=== PATIENT | male | born 1965 | race Caucasian/White ===

== ENCOUNTER 2017-09-05 22:14 | Emergency (ER) | payer BC, OTHER ==
[~2017-09-05] VITALS: Ht 180.3 cm; Wt 108.9 kg
[~2017-09-05 22:14] MED LIST: ACEBUTOLOL HCL200 MG PO; AZITHROMYCIN500 MG PO; BACTROBAN15 GM TOP; CLOBETASOL EMOL15 GM TOP; EDARBYCLOR 40-1 EACH PO; HYDROCHLOROTH12.5 MG PO; METFORMIN HCL500 MG PO; NEXIUM40 MG PO; NIFEDIPINE10 MG PO; TRIAMCINOLONE A15 G3 TOP; Z COREG PO; Z.0.CATAPRES0.3 MG PO; Z.0.COZAAR100 MG PO; Z.0.DEXILANT60 MG PO; Z.0.FOLIC ACID1 MG PO; Z.0.GLUCOPHAGE500 MG PO; Z.0.HUMALOG100 UNIT/ SQ; Z.0.LANTUS100 UNIT/1 SQ; Z.0.LIPITOR40 MG PO; Z.0.MOBIC7.5 MG PO; Z.0.REGLAN5 MG PO; [UNRECOGNIZED DRUG - OTHER] PO
--- OUTSIDE RECORDS SUMMARY | 2017-09-05 22:16 | XMS REPORT | Summary of Care ---
Author Author [facility] Unknown Address [facility] Phone Unavailable Care Team Providers Care Dust Collector Operator Name Role Phone MINDI CRENSHAW M.D. Unavailable Unavailable Unavailable Unavailable Functional Status Name Dates Details Functional status health issues are not documented Status: Name Dates Details Cognitive status health issues are not documented Status: Problems Name Dates Details Diabetes mellitus (250.00, E11.9) Status: Active Hypertension (401.9, I10) Status: Active Hyperlipidemia (272.4, E78.5) Status: Active Vitamin D insufficiency (268.9, E55.9) Status: Active Medications Name Dates Details MetFORMIN HCl - 500 MG Oral Tablet Take 2 tablets by mouth in the morning and take 2 tablets in the evening Quantity: 360 MINDI CRENSHAW M.D. * Start : 29-Apr-2017 Active NIFEdipine ER 60 MG Oral Tablet Extended Release 24 Hour Take one tablet twice dailyPer PCP * Quantity: 60 Refills: 2 MINDI CRENSHAW M.D. * Start : 04-Oct-2014 Active Metoclopramide HCl - 5 MG Oral Tablet TAKE 1 TABLET 2x DAILY. * Quantity: 60 Refills: 2 MINDI CRENSHAW M.D. * Start : 04-Oct-2014 Active Edarbyclor 40-12.5 MG Oral Tablet Take one tablet dailyPer PCP * Refills: 0 MINDI CRENSHAW M.D. * Start : 04-Oct-2014 Active NexIUM 40 MG Oral Capsule Delayed Release take one tablet daily * Quantity: 60 Refills: 2 MINDI CRENSHAW M.D. * Start : 04-Oct-2014 Active HydroCHLOROthiazide 12.5 MG Oral Capsule TAKE 1 CAPSULE DAILYPer PCP * Quantity: 30 Refills: 2 MINDI CRENSHAW M.D. * Start : 04-Oct-2014 Active Atorvastatin Calcium 40 MG Oral Tablet TAKE 1 TABLET DAILY * Quantity: 30 Refills: 2 MINDI CRENSHAW M.D. * Start : 04-Oct-2014 Active Acebutolol HCl - 200 MG Oral Capsule Take one tablet daily * Quantity: 30 Refills: 2 * Start : 04-Oct-2014 Active Lantus SoloStar 100 UNIT/ML Subcutaneous Solution Pen-injector 50-52 units nightly; may add extra 10 units the night of steroid shot * Quantity: 4 Refills: 0 MINDI CRENSHAW M.D. * Start : 11-Dec-2014 Active 5 x 3 ML Pen HumaLOG KwikPen 100 UNIT/ML Subcutaneous Solution Pen-injector Inject 8-15 units subcutaneously with meals - icr 1 unit: 3 to 5 grams; CF 40- up to 50 units a day * Quantity: 3 Refills: 0 MINDI CRENSHAW M.D. * Start : 27-Jul-2017 Active 5 x 3 ML Pen BD Pen Needle Mini U/F 31G X 5 MM 5 to 6 a day * Quantity: 500 Refills: 4 MINDI CRENSHAW M.D. * Start : 11-Dec-2014 Active GlucaGen HypoKit 1 MG Injection Solution Reconstituted USE DIRECTED in case of severe hypoglycemia * Quantity: 1 Refills: 10 MINDI CRENSHAW M.D. * Start : 11-Dec-2014 Active FreeStyle Lite Test In Vitro Strip CHECK BLOOD SUGAR 4 TO 5 TIMES A DAY * Quantity: 400 Refills: 4 MINDI CRENSHAW M.D. * Start : 11-Dec-2014 Active FreeStyle Lancets Check BG 5x a day * Quantity: 5 Refills: 4 MINDI CRENSHAW M.D. * Start : 11-Dec-2014 Active 100 Miscellaneous Box FreeStyle Lite Device USE DIRECTED. * Quantity: 1 Refills: 0 MINDI CRENSHAW M.D. * Start : 11-Dec-2014 Active B-12 TR 1000 MCG Oral Tablet Extended Release TAKE 1 TABLET DAILY DIRECTED. * Quantity: 100 Refills: 6 MINDI CRENSHAW M.D. * Start : 04-Jul-2015 Active Vitamin D3 2000 UNIT Oral Capsule 1 a day; Starting 03-11-16 * Quantity: 100 Refills: 4 MINDI CRENSHAW M.D. * Start : 04-Jul-2015 Active HumuLIN N KwikPen 100 UNIT/ML Subcutaneous Suspension Pen-injector Take 1 unit for every 2 mg of Prednisone ; to be taken at the same timeUsed as directed while on Steroids MDD:50 * Quantity: 1 Refills: 1 MINDI CRENSHAW M.D. * Start : 26-May-2017 Active 3 ML Pen Allergies and Adverse Reactions Name Dates Details No Known Drug Allergies (Allergy) Status: Active Past Medical History Name Dates Details History of alcoholism (V11.3, F10.21) Status: Resolved History of pancreatitis (V12.79, Z87.19) Status: Resolved History of squamous cell carcinoma (V10.89, Z85.89) Status: Resolved Procedures Procedure Dates Details History of Knee Surgery Completed History of Elbow Surgery Completed History of Cholecystectomy Completed History of Tonsillectomy Completed History of Nasal Septal Deviation Repair Completed History of hip replacement Completed Immunization Name Dates Details Pneumococcal polysaccharide vaccine, 23 valent Comments: Approx [id number] Influenza Comments: Approx [id number] Influenza Comments: Approx [id number] Fluzone Quadrivalent 0.5 ML Intramuscular Suspension on: 06-Jan-2017 Family History Name Dates Details Family history of diabetes mellitus (V18.0, Z83.3) Status: Active Family history of coronary arteriosclerosis (V17.3, Z82.49) Status: Active Social History Name Dates Details - Status: Name Dates Details Current every day smoker Former smoker Vital Signs Date Test Result Details [id number] BP Systolic 140 mm[Hg] Status: BP Diastolic 76 mm[Hg] Status: [id number] BP Systolic 158 mm[Hg] Status: Comments: Location: LUE; Position: Sitting BP Diastolic 77 mm[Hg] Status: Comments: Location: E; Position: Sitting Height 71 in Status: Weight 251.1875 lb Status: Body Mass Index Calculated 35.03 kg/m2 Status: Body Surface Area Calculated 2.32 m2 Status: Heart Rate 67 /min Status: Results Date Description Value Details [id number] [O] Hemoglobin A1c (in office) HEMOGLOBIN A1c 7.3 99-Qaq-[id number]:18 Glucose (Point of Care In Office) Glucose POC [facility] Plan of Care Name Dates Details Planned Observations Planned Goals not documented Planned Encounters Appointment; MINDI CRENSHAW M.D. On: 04-Nov-2017 15:15 Interventions Provided Labs/Procedures/Imaging* [O] Hemoglobin A1c (in office); Done: 28 Jul 2017 * Glucose (Point of Care In Office); Done: 28 Jul 2017 Discussion/Summary* A1c better. Continue regimen. May use ICR 1:3 as needed, e.g. on GC. Discussed the importance of DM control and its metabolic and vascular complications. Stressed the importance of consistent MNT and med compliance in DM control! * Continue to do SMBG 3-5x a day. * Timely and accurate insulin bolusing reiterated * Exercise encouraged * Take medicine. Discussed the importance of BP control. * Take medicine. MNT reiterated. Discussed the importance of Lipid control. * Take Vit D * Spent 18/25 mins counseling Instructions Name Dates Details Instructions not documented Encounters Appointment; MINDI CRENSHAW M.D. Encounter Diagnosis: Problem not documented On: 06-Nov-2015 9:00 Appointment; MINDI CRENSHAW M.D. Encounter Diagnosis: Problem not documented On: 10-Mar-2016 8:00 Appointment; MINDI CRENSHAW M.D. Encounter Diagnosis: Problem not documented On: 23-Jun-2016 8:00 Appointment; MINDI CRENSHAW M.D. Encounter Diagnosis: Problem not documented On: 07-Oct-2016 8:30 Appointment; MINDI CRENSHAW M.D. Encounter Diagnosis: Problem not documented On: 16-Feb-2017 8:30 Appointment; MINDI CRENSHAW M.D. Encounter Diagnosis: Problem not documented On: 26-May-2017 15:45 Appointment; KAILYN STEIN RD Encounter Diagnosis: Problem not documented On: 27-Jun-2017 8:00 Appointment; MINDI CRENSHAW M.D. Encounter Diagnosis: Problem not documented On: 28-Jul-2017 13:00
== END 2017-09-05 22:45 | disposition home or self-care (01) ==
LOC: FSED 22:14
DX: L03.011 Cellulitis of right finger (principal); E11.9 Type 2 diabetes mellitus without complications; Z79.4 Long term (current) use of insulin

== ENCOUNTER → 2019-02-09 | Day surgery (SDC) | payer BC, OTHER ==
[2019-02-08 17:18] LABS: BASOPHILS # (AUTO) 0.1 (0.0-0.1); BASOPHILS % 0.5 % (0.0-1.0); EOSINOPHILS # (AUTO) 0.3 (0.0-0.4); EOSINOPHILS % 2.9 % (0.0-6.0); HEMATOCRIT 41.4 % (38.2-49.6); HEMOGLOBIN 13.9 g/dL (14.0-18.0); LYMPHOCYTES # (AUTO) 3.2 (1.0-3.2); LYMPHOCYTES % 31.1 % (18.0-39.1); MEAN CORPUSCULAR HEMOGLOBIN 28.5 pg (28-32); MEAN CORPUSCULAR HGB CONC 33.6 g/dL (31-35); MONOCYTES % 9.6 % (4.4-11.3); NEUTROPHILS # (AUTO) 5.7 (2.1-6.9); NEUTROPHILS % 55.6 % (38.7-80.0); PLATELET COUNT 302 x10e3/uL (140-360); RED BLOOD COUNT 4.87 x10e6/uL (4.3-5.7); RED CELL DISTRIBUTION WIDTH 12.9 % (11.7-14.4)
[2019-02-08 17:36] LABS: ANION GAP 12.1 mmol/L (8-16); BLOOD UREA NITROGEN 13 mg/dL (7-26); BUN/CREATININE RATIO 12 (6-25); CALCIUM 9.6 mg/dL (8.4-10.2); CARBON DIOXIDE 27 mmol/L (22-29); CHLORIDE 101 mmol/L (98-107); CREATININE, SERUM 1.07 mg/dL (0.72-1.25); EST GLOMERULAR FILTRATION RATE > 60 ML/MIN (60-); GLUCOSE 67 mg/dL (74-118); POTASSIUM 3.1 mmol/L (3.5-5.1); SODIUM 137 mmol/L (136-145)
[~2019-02-09] MED LIST changes: +BUPIVACAINE 0.25%/EPI 30ML SDV INJ ONE; +CEFAZOLIN SOD 1 GM VIAL ONE; +CLINDAMYCIN HC150 MG PO; +DEXAMETHASONE SOD PHOS INJ 4 MG/ML VIAL ONE; +FENTANYL CITRATE/PF 100MCG/2 ML INJ ONE; +LIDOCAINE HCL 1% 30ML-PF VIAL ONE; +LIDOCAINE HCL 1% LOCAL INJ 20 ML VIAL ONE; +LIDOCAINE HCL 2% LOCAL INJ 5 ML SDV VIAL INJ ONE; +MIDAZOLAM HCL 2 MG/2 ML VIAL ONE; +ONDANSETRON HCL INJ 2MG/ML 2ML 2 MG/ML VIAL ONE; +PROPOFOL IV EMULSION 10 MG/ML 20 ML VIAL ONE; +SEVOFLURANE INHAL SOLN 250 ML PEN BTL ONE; +SINGULAIR10 MG PO; +SULFAMETHOXAZO1 EAC1 PO
--- OUTSIDE RECORDS SUMMARY | 2019-02-09 09:36 | XMS REPORT | Summary of Care ---
Author Author [facility] Address [facility] Phone Unavailable Care Team Providers Care Lagging Machine Operator Name Role Phone MINDI CRENSHAW M.D. Unavailable Unavailable MINDI CRENSHAW MD Unavailable Unavailable Unavailable Unavailable Functional Status Name Dates Details Functional status health issues are not documented Status: Name Dates Details Cognitive status health issues are not documented Status: Problems Name Dates Details Diabetes mellitus (250.00, E11.9) Status: Active Hyperlipidemia (272.4, E78.5) Status: Active Hypertension (401.9, I10) Status: Active Vitamin D insufficiency (268.9, E55.9) Status: Active Medications Name Dates Details metFORMIN HCl - 500 MG Oral Tablet TAKE 2 TABLETS BY MOUTH EVERY MORNING AND 2 TABLETS EVERY EVENING Quantity: 360 MINDI CRENSHAW M.D. * Start : 01-Aug-2018 Active NIFEdipine ER 60 MG Oral Tablet [...] tablet daily * Quantity: 60 Refills: 2 FLOWER Conteh.MINDI Alegre * Start : 04-Oct-2014 Active hydroCHLOROthiazide 12.5 MG Oral Capsule TAKE 1 CAPSULE DAILYPer PCP * Quantity: 30 Refills: 2 FLOWER Conteh.MINDI Alegre * Start : 04-Oct-2014 Active Atorvastatin Calcium 40 MG Oral Tablet TAKE 1 TABLET DAILY * Quantity: 30 Refills: 2 MINDI CRENSHAW M.D. * Start : 04-Oct-2014 Active Acebutolol HCl - 200 MG Oral Capsule Take one tablet daily * Quantity: 30 Refills: 2 * Start : 04-Oct-2014 Active Lantus SoloStar 100 UNIT/ML Subcutaneous Solution Pen-injector Inject 50 units subcutaneously nightly may add extra 10 units the night of stero id shot MDD:80 * Quantity: 5 Refills: 0 MINDI CRENSHAW M.D. * Start : 11-Dec-2014 Active 5 x 3 ML Pen HumaLOG KwikPen 100 UNIT/ML Subcutaneous Solution Pen-injector Inject 18-22 units subcutaneously with meals - ICR 1:4 (B&S); 1:5 (L); CF 40- up to 80 units a day * Quantity: 5 Refills: 1 MINDI CRENSHAW M.D. * Start : 11-Dec-2014 Active 5 x 3 ML Pen BD Pen Needle Mini U/F 31G X 5 MM 5 to 6 a day * Quantity: 500 Refills: 4 MINDI CRENSHAW M.D. * Start : 11-Dec-2014 Active GlucaGen HypoKit 1 MG Injection Solution Reconstituted USE DIRECTED in case of severe hypoglycemia * Quantity: 1 Refills: 11 MINDI CRENSHAW M.D. * Start : 26-Dec-2017 Active FreeStyle Lite Test In Vitro Strip CHECK BLOOD SUGAR 4 TO 5 TIMES A DAY * Quantity: 5 Refills: 0 MINDI CRENSHAW M.D. * Start : 24-Apr-2018 Active 100 Strip Box FreeStyle Lancets Use to check blood sugar 5 time(s) daily * Quantity: 5 Refills: 0 MINDI CRENSHAW M.D. * Start : 23-Dec-2017 Active 100 Unit Box FreeStyle Lite Device USE DIRECTED. * Quantity: 1 Refills: 0 MINDI CRENSHAW M.D. * Start : 11-Dec-2014 Active B-12 TR 1000 MCG Oral Tablet Extended Release TAKE 1 TABLET DAILY DIRECTED. * Quantity: 100 Refills: 6 FLOWER MINDI Puente * Start : 04-Jul-2015 Active Vitamin D3 2000 UNIT Oral Capsule 1 a day; Starting 03-11-16 * Quantity: 100 Refills: 4 FLOWER Wero.MINDI Alegre * Start : 04-Jul-2015 Active HumuLIN N KwikPen 100 UNIT/ML Subcutaneous Suspension Pen-injector Take 1 unit for every 2 mg of Prednisone ; to be taken at the same timeUsed as directed while on Steroids MDD:50 * Quantity: 1 Refills: 1 MINDI CRENSHAW M.D. * Start : 26-May-2017 Active 3 ML Pen Advocate Insulin Pen [place] 31G X 5 MM Use five to six times daily * Quantity: 6 Refills: 0 MINDI CRENSHAW M.D. * Start : 24-Apr-2018 Active 100 Unit Box Jardiance 25 MG Oral Tablet TAKE 1 TABLET BY MOUTH EVERY MORNING * Quantity: 30 Refills: 0 MINDI CRENSHAW M.D. * Start : 16-Feb-2018 Active Allergies and Adverse Reactions Name Dates Details No Known Drug Allergies (Allergy) Status: Active Past Medical History Name Dates Details History of alcoholism (V11.3, F10.21) Status: Resolved History of pancreatitis (V12.79, Z87.19) Status: Resolved History of squamous cell carcinoma (V10.89, Z85.89) Status: Resolved Procedures Procedure Dates Details History of Tonsillectomy Completed History of Cholecystectomy Completed History of Knee Surgery Completed History of Elbow Surgery Completed History of Nasal Septal Deviation Repair Completed History of Hip replacement Completed Immunization Name Dates Details Pneumococcal polysaccharide vaccine, 23 valent Comments: Approx [id number] Influenza Comments: Approx [id number] Influenza Comments: Approx [id number] Fluzone Quadrivalent 0.5 ML Intramuscular Suspension on: 06-Jan-2017 Family History Name Dates Details Family history of diabetes mellitus (V18.0, Z83.3) Status: Active Family history of coronary arteriosclerosis (V17.3, Z82.49) Status: Active Social History Name Dates Details - Status: Name Dates Details Current every day smoker Former smoker Vital Signs Date Test Result Details No Known Vitals to report Results Date Description Value Details Results not documented Plan of Care Name Dates Details Planned Observations Planned Goals not documented Interventions Provided Medication Changes* Jardiance 25 MG Oral Tablet - Renew Instructions Name Dates Details Instructions not documented Encounters Appointment; MINDI CRENSHAW M.D. Encounter Diagnosis: Problem not documented On: 16-Feb-2017 8:30 Appointment; MINDI CRENSHAW M.D. Encounter Diagnosis: Problem not documented On: 26-May-2017 15:45 Appointment; KAILYN STEIN RD Encounter Diagnosis: Problem not documented On: 27-Jun-2017 8:00 Appointment; MINDI CRENSHAW M.D. Encounter Diagnosis: Problem not documented On: 28-Jul-2017 13:00 Appointment; MINDI CRENSHAW M.D. Encounter Diagnosis: Problem not documented On: 04-Nov-2017 15:15 Appointment; MINDI CRENSHAW M.D. Encounter Diagnosis: Problem not documented On: 16-Feb-2018 15:15 Appointment; MINDI CRENSHAW M.D. Encounter Diagnosis: Problem not documented On: 22-May-2018 15:15
[2019-02-09 16:30] VITALS: BP 129/84
--- NOTE | 2019-02-09 16:37 | Operative Report ---
DATE OF PROCEDURE: 02/09/2019 SURGEON: Juan M Bonner MD PREOPERATIVE DIAGNOSIS: Chronically infected cyst of the right upper inner thigh. POSTOPERATIVE DIAGNOSIS: Chronically infected cyst of the right upper inner thigh. PROCEDURE PERFORMED: Excision of chronically infected cystic lesion of right upper inner thigh. ANESTHESIA: General. ESTIMATED BLOOD LOSS: Minimal. DRAINS: None. COMPLICATIONS: None. INDICATIONS AND FINDINGS: A 53-year-old male admitted for excision of chronically infected cyst of the thigh. INTRAOPERATIVE FINDINGS: As above. There was no pus formations, so the entire cyst was excised and the wound was closed primarily after irrigation. DESCRIPTION OF PROCEDURE: With the patient lying on the operative table in the supine position after administration of general anesthesia, he was prepped and draped for excision of cyst of the right upper inner thigh. The right lower extremity was . Elliptical incision was made longitudinally across the lesion and the entire lesion was excised down to the subcutaneous fat. Bleeding points were cauterized. Then, the wound was closed in 2 layers using 2-0 Vicryl IVC 2-0 precut for the for the soft tissues and the skin was closed using 3-0 vertical mattress silk sutures. The patient tolerated the procedure well, taken to recovery room in stable condition. MD SACHIN SouthR/MODL /[id number]
== END | disposition home or self-care (01) ==
LOC: OR 09:33
PROVIDERS: ATTEND Surgery
DX: L72.8 Other follicular cysts of the skin and subcutaneous tissue (principal); L02.415 Cutaneous abscess of right lower limb; Z01.812 Encounter for preprocedural laboratory examination; K21.9 Gastro-esophageal reflux disease without esophagitis; E11.9 Type 2 diabetes mellitus without complications; G47.33 Obstructive sleep apnea (adult) (pediatric); J44.9 Chronic obstructive pulmonary disease, unspecified; I10 Essential (primary) hypertension; E78.5 Hyperlipidemia, unspecified; M06.9 Rheumatoid arthritis, unspecified
CPT/HCPCS: 11404; 12032; 36415 ×2; 80048; 82948; 84132; 85025; 88305; 93005; J0690; J1100; J2001; J2250; J2405; J2704; J3010; 88304

== ENCOUNTER → 2020-05-15 | Outpatient (CLI) | payer OTHER ==
[~2020-05-15] MED LIST changes: -BUPIVACAINE 0.25%/EPI 30ML SDV INJ ONE; -CEFAZOLIN SOD 1 GM VIAL ONE; -DEXAMETHASONE SOD PHOS INJ 4 MG/ML VIAL ONE; -FENTANYL CITRATE/PF 100MCG/2 ML INJ ONE; -LIDOCAINE HCL 1% 30ML-PF VIAL ONE; -LIDOCAINE HCL 1% LOCAL INJ 20 ML VIAL ONE; -LIDOCAINE HCL 2% LOCAL INJ 5 ML SDV VIAL INJ ONE; -MIDAZOLAM HCL 2 MG/2 ML VIAL ONE; -ONDANSETRON HCL INJ 2MG/ML 2ML 2 MG/ML VIAL ONE; -PROPOFOL IV EMULSION 10 MG/ML 20 ML VIAL ONE; -SEVOFLURANE INHAL SOLN 250 ML PEN BTL ONE
== END ==
LOC: RAD 14:51
PROVIDERS: ATTEND Internal Medicine
DX: M54.2 Cervicalgia (principal)
CPT/HCPCS: 72050

== ENCOUNTER → 2020-11-24 | Outpatient (CLI) | payer BC ==
[~2020-11-24] MED LIST changes: +IOPAMIDOL 370 MG/ML 200 ML INFUS..BTL INJ ONE; +SODIUM CHLORIDE 0.9% 50ML 50 ML ONE
== END ==
LOC: CT 15:40
PROVIDERS: ATTEND Internal Medicine Interventional Cardiology
DX: R06.02 Shortness of breath (principal); I20.8 Other forms of angina pectoris
CPT/HCPCS: 71260; Q9967

== ENCOUNTER → 2020-11-28 | Outpatient (CLI) | payer BC, OTHER ==
[~2020-11-28] MED LIST changes: +ALBUTEROL SULF 0.083% NEB SOLN 3 ML NEB ONE; -IOPAMIDOL 370 MG/ML 200 ML INFUS..BTL INJ ONE; -SODIUM CHLORIDE 0.9% 50ML 50 ML ONE
== END ==
LOC: RESP 09:49
PROVIDERS: ATTEND Internal Medicine Interventional Cardiology
DX: R06.02 Shortness of breath (principal); I20.8 Other forms of angina pectoris
CPT/HCPCS: 94060; 94640; 94729

== ENCOUNTER 2022-08-05 19:49 | Emergency (ER) | payer BC, OTHER ==
[~2022-08-05] VITALS: Ht 180.3 cm; Wt 108.9 kg
[~2022-08-05 19:49] MED LIST changes: -ALBUTEROL SULF 0.083% NEB SOLN 3 ML NEB ONE
[2022-08-05] MEDS ORDERED: IBUPROFEN 600 MG TAB PO STA (20:48)
[2022-08-05] MEDS ORDERED: SODIUM CHLORIDE 0.9% 1000ML 1,000 ML IV SCH (21:00)
[2022-08-05 21:07] LABS: BASOPHILS # (AUTO) 0.1 (0.0-0.1); BASOPHILS % 0.4 % (0.0-1.0); EOSINOPHILS # (AUTO) 0.2 (0.0-0.4); EOSINOPHILS % 1.9 % (0.0-6.0); HEMOGLOBIN 13.7 g/dL (14.0-18.0); LYMPHOCYTES # (AUTO) 2.1 (1.0-3.2); LYMPHOCYTES % 17.6 % (18.0-39.1); MEAN CORPUSCULAR HEMOGLOBIN 28.4 pg (28-32); MEAN CORPUSCULAR HGB CONC 33.4 g/dL (31-35); MEAN CORPUSCULAR VOLUME 84.9 fL (81-99); MONOCYTES # (AUTO) 1.3 (0.2-0.8); MONOCYTES % 10.6 % (4.4-11.3); NEUTROPHILS # (AUTO) 8.2 (2.1-6.9); NEUTROPHILS % 69.3 % (38.7-80.0); PLATELET COUNT 249 x10e3/uL (140-360); RED BLOOD COUNT 4.83 x10e6/uL (4.3-5.7); RED CELL DISTRIBUTION WIDTH 12.8 % (11.7-14.4)
[2022-08-05 21:16] LABS: INR 0.89; PROTHROMBIN TIME 12.5 seconds (11.9-14.5)
[2022-08-05 21:17] LABS: PARTIAL THROMBOPLASTIN TIME 26.3 seconds (23.8-35.5)
[2022-08-05 21:25] LABS: STREPTOCOCCUS GRP A ANTIGEN NEGATIVE (NEGATIVE)
[2022-08-05 21:26] LABS: ALANINE AMINOTRANSFERASE 24 IU/L (0-55); ALBUMIN 3.7 g/dL (3.5-5.0); ALBUMIN/GLOBULIN RATIO 1.3 (0.8-2.0); ALKALINE PHOSPHATASE 72 IU/L (40-150); ANION GAP 12.3 mmol/L (8-16); BLOOD UREA NITROGEN 12 mg/dL (7-26); BUN/CREATININE RATIO 9 (6-25); CALCIUM 9.4 mg/dL (8.4-10.2); CARBON DIOXIDE 28 mmol/L (22-29); CHLORIDE 99 mmol/L (98-107); CREATINE KINASE 187 IU/L (30-200); CREATININE, SERUM 1.39 mg/dL (0.72-1.25); GLUCOSE 160 mg/dL (74-118); POTASSIUM 3.3 mmol/L (3.5-5.1); SODIUM 136 mmol/L (136-145)
[2022-08-05 21:30] LABS: CLARITY,URINE CLEAR (CLEAR); COLOR,URINE YELLOW (YELLOW); LEUKOCYTE ESTERASE ,URINE NEGATIVE (NEGATIVE); NITRITE,URINE NEGATIVE (NEGATIVE)
[2022-08-05 21:31] LABS: KETONES,URINE NEGATIVE (NEGATIVE); PROTEIN,URINE DIPSTICK NEGATIVE (NEGATIVE); URINE UROBILINOGEN 0.2 mg/dL (0.2 - 1)
[2022-08-05 21:33] LABS: B-TYPE NATRIURETIC PEPTIDE2 < 5.0 pg/mL (0-100)
[2022-08-06] MEDS ORDERED: IBUPROFEN800 MG PO (03:21)
[2022-08-06] MEDS ORDERED: CEFDINIR300 MG PO (03:21)
[2022-08-06] MEDS ORDERED: AZITHROMYCIN250 MG PO (03:21)
[2022-08-06 03:39] VITALS: BP 117/62
== END 2022-08-06 03:38 | disposition home or self-care (01) ==
LOC: ER 19:55
DX: J18.9 Pneumonia, unspecified organism (principal); R50.9 Fever, unspecified; M54.50 Low back pain, unspecified; R10.9 Unspecified abdominal pain
CPT/HCPCS: 36415; 71045; 74176; 80053; 81001; 82550; 82553; 83518; 83605; 83880; 84484; 85025; 85610; 85730; 87040; 87070; 87086; 93005; 99284; J0456; J0696; J7030; J7050; U0002